=== PATIENT | female | born 1980 | race African-American/Black ===

== ENCOUNTER 2017-01-24 21:53 | Emergency (ER) | payer OTHER ==
[~2017-01-24] VITALS: Ht 167.6 cm; Wt 158.8 kg
--- NOTE | ~2017-01-24 | CT4 ---
[facility] A Service of [facility] RADIOLOGY TEXT RESULTS PATIENT: ANTHONY HATFIELD LOCATION: [facility] : [id number] UNIT #: [id number] AGE: [address]: Taye Kaye DO SEX: F ORDER DR: [id number] [facility] [address] [place], [place] [address] [id number] E MR#: [id number] Acc #: [id number] NAME: ANTHONY HATFIELD : 1980 SEX: F STUDY DATE/TIME: 01/25/2017 1:20 UNIT: [facility] ROOM: STUDY DESCRIPTION: CT Abd and Pelv Wo Cont Attending Physician: Taye Kaye D.O. Ordering Physician: Taye Kaye D.O. Primary Care Physician: María Villasenor A.P.R.N. MEDICAL IMAGING REPORT This report is preliminary unless electronic signature is present EXAM CT abdomen and pelvis without contrast INDICATION Lower abdominal pain and nausea for the past 2 days. PROCEDURE Contrast-enhanced CT of the abdomen and pelvis. This CT exam was performed with one or more of the following radiation dose reduction techniques: automatic exposure control, adjustment of mA and/or kV according to patient size, and iterative reconstruction. COMPARISON None FINDINGS ABDOMEN WITHOUT CONTRAST: Included lung bases are clear. The liver measures 21.4 cm in length. Spleen, adrenal glands, pancreas and the gallbladder have an unremarkable unenhanced appearance. Moderate colonic stool burden. Appendix is normal. No radiodense urinary system calculus or hydronephrosis. PELVIS WITHOUT CONTRAST: No radiodense bladder calculus. No pelvic mass is seen. No aggressive appearing bone lesion. IMPRESSION 1. No acute findings. 2. Hepatomegaly. 3. Moderate colonic stool burden. 4. Normal appendix. No evidence for obstruction or radiodense urinary system calculus. [facility] A Service of [facility] RADIOLOGY TEXT RESULTS PATIENT: ANTHONY HATFIELD LOCATION: [facility] : [id number] UNIT #: [id number] AGE: [address]: Taye Kaye DO SEX: F ORDER DR: Dictated by... Brandon Hoyt M.D. THIS IS AN ELECTRONICALLY VERIFIED REPORT Brandon Hoyt M.D. at 01/25/2017 10:03 PM Anne-Marie TD: 01/25/2017 09:55 JOB #: [id number] MEDICAL IMAGING REPORT Page 1 of 1 COPY
[~2017-01-24 21:53] MED LIST: ALLERGY10 M2 PO; FAMOTIDINE PO; FLEXERIL PO; FLEXERIL10 MG PO; KETOPROFEN PO; LISINOPRIL; NAPROSYN500 MG PO; NO MEDICATIONS; PERCOCET PO; PREDNISONE PO; PREDNISONE10 MG/DOSE PO; PRILOSEC20 M1 PO; VOLTAREN50 MG PO
[2017-01-24 22:30] LABS: URINE SOURCE CLEAN CATCH
[2017-01-24 22:40] LABS: URINE APPEARANCE TURBID; URINE BILIRUBIN NEG (NEG); URINE BLOOD NEG (NEG); URINE COLOR DK YELLOW; URINE GLUCOSE NEG (NEG); URINE KETONE TRACE (NEG); URINE LEUKOCYTE ESTERASE 2+ (NEG); URINE NITRATE NEG (NEG); URINE PROTEIN TRACE (NEG); URINE SPECIFIC GRAVITY 1.036 (1.003-1.035)
[2017-01-24 22:42] LABS: CULTURE INDICATED? YES; URINE BACTERIA AUWI 4+ (NEGATIVE); URINE SQUAMOUS EPITHELIAL CELL MANY /[HPF]; UWBCS1 AUWI 50-100 (0-5)
[2017-01-24 22:52] LABS: URINE MUCUS PRESENT
[2017-01-24 23:29] LABS: BASOPHIL# 0.1 X10e3 (0-0.3); BASOPHIL% 0.7 % (0-2.5); DIFF IND NO; EOSINOPHIL# 0.4 X10e3 (0-0.7); EOSINOPHIL% 4.4 % (0.0-7.0); HEMATOCRIT 38.4 % (35.0-45.0); HEMOGLOBIN 12.3 gm/dL (12.0-16.0); LYMPHOCYTE# 3.1 X10e3 (1.0-3.5); LYMPHOCYTE% 36.5 % (17.0-45.0); MEAN CELL VOLUME 90.2 FL (83-96); MEAN CORPUSCULAR HEMOGLOBIN 28.8 PG (28-34); MEAN PLATELET VOLUME 7.9 FL (6.5-11.5); MONOCYTE# 0.6 X10e3 (0-1.0); MONOCYTE% 7.6 % (3.0-12.0); NEUTROPHIL# 4.3 X10e3 (1.5-7.1); NEUTROPHIL% 50.8 % (40-75); PLATELET COUNT 279 X10e3 (140-420); RED BLOOD COUNT 4.25 X10e (3.90-5.30); RED CELL DISTRIBUTION WIDTH 13.8 % (11.0-15.5); WHITE BLOOD COUNT 8.5 X10e3 (4.0-10.5)
[2017-01-24 23:52] LABS: ALBUMIN SERUM 4.1 g/dL (3.5-5.0); BILIRUBIN, DIRECT 0.1 mg/dL (0.0-0.2); BILIRUBIN,INDIRECT 0.6 mg/dL (0.0-0.9); BILIRUBIN,TOTAL 0.7 mg/dL (0.2-2.0); BUN/CREATININE RATIO 9.16; CALCIUM SERUM 9.3 mg/dL (8.4-10.2); CREATININE SERUM 1.2 mg/dL (0.6-1.4); GLOM FILT RATE Estimated 66.4 mL/min (>60); POTASSIUM 3.8 mmol/L (3.5-5.1); PROTEIN TOTAL SERUM 7.5 g/dL (6.0-8.3)
== END 2017-01-25 03:10 | disposition home or self-care (01) ==
LOC: CED 21:53
DX: N39.0 Urinary tract infection, site not specified (principal); I10 Essential (primary) hypertension; Z79.899 Other long term (current) drug therapy
CPT/HCPCS: 36415; 74176; 80048; 80076; 81003; 82150; 83690; 84703; 85025; 87086; 99284; J0696